=== PATIENT | female | born 1995 | race Caucasian/White ===

== ENCOUNTER 2016-09-18 13:32 | Emergency (ER) | payer OTHER ==
[2016-09-18 13:43] VITALS: BP 99/61
[2016-09-18] MEDS ORDERED: Ketorolac INJ* 60 MG/2 ML VIAL IM ONE (14:04)
[2016-09-18 14:46] LABS: UR Preg Internal Control QC Line Present
--- NOTE | 2016-09-18 14:56 | ED ---
Lower Extremity - HPI Summary HPI Summary: 20F presents with tailbone pain s/p falling down the stairs today. She states that she slipped due to her shoes and feel down a couple stairs on her butt. She did hit her head but she denies any LOC or vomiting. She also hit her right wrist but has full ROM and no deformity. What hurts her the most is her tailbone. She has not taken anything for pain. She denies any loss of bowel or bladder or saddle anaesthesia. She states is hurt the most to sit. She denies any numbness or tingling or pain into the leg. - History of Current Complaint Chief Complaint: EDBackInjuryPain Stated Complaint: FALL/BACK PAIN/SWELLING Time Seen by Provider: 09/18/16 13:56 Pain Intensity: 7 - Allergies/Home Medications Allergies/Adverse Reactions: Allergies Allergy/AdvReac Type Severity Reaction Status Date / Time Shellfish Allergy Allergy Swelling Verified 02/03/16 14:09 Of Face,Lips,& Throat Sulfa Antibiotics Allergy Hives/Diff. Verified 02/03/16 14:09 Breathing/I tching PMH/Surg Hx/FS Hx/Imm Hx Endocrine/Hematology History: Denies: Hx Blood Disorders Respiratory History: Reports: Hx Asthma - as a child Psychiatric History: Reports: Hx Anxiety - treatment in the past, no meds now, Hx Depression Infectious Disease History: Denies: Traveled Outside the [place] in Last 30 Days - Family History Known Family History: Positive: Hypertension, Diabetes - Social History Alcohol Use: None Substance Use Type: Reports: None Smoking Status (MU): Current Every Day Smoker Type: Cigarettes Amount Used/How Often: 10 per day Length of Time of Smoking/Using Tobacco: 5 years Have You Smoked in the Last Year: Yes Review of Systems Negative: Fever Negative: Chest Pain Negative: Shortness Of Breath Positive: Myalgia - tailbone pain All Other Systems Reviewed And Are Negative: Yes Physical Exam Triage Information Reviewed: Yes Vital Signs On Initial Exam: Initial Vitals Temp Pulse Resp BP Pulse Ox 98.1 F 95 16 99/61 98 09/18/16 13:38 09/18/16 13:38 09/18/16 13:38 09/18/16 13:38 09/18/16 13:38 Vital Signs Reviewed: Yes Appearance: Positive: Well-Appearing Skin: Positive: Warm, Dry Head/Face: Positive: Normal Head/Face Inspection, Other - no step off, racoon eyes, aldana sign, Eyes: Positive: Normal, EOMI, YANELIS, Conjunctiva Clear ENT: Positive: Normal ENT inspection, Pharynx normal, TMs normal Respiratory/Lung Sounds: Positive: Clear to Auscultation, Breath Sounds Present Cardiovascular: Positive: Normal, RRR Abdomen Description: Positive: Nontender, Soft Bowel Sounds: Positive: Present Musculoskeletal: Positive: Other - tender over tailbone, good pulses Neurological: Positive: Sensory/Motor Intact, Alert, Oriented to Person Place, Time, CN Intact II-III - Jaquan Coma Scale Best Eye Response: 4 - Spontaneous Best Motor Response: 6 - Obeys Commands Best Verbal Response: 5 - Oriented Diagnostics - Vital Signs Vital Signs Temp Pulse Resp BP Pulse Ox 09/18/16 13:38 98.1 F 95 16 99/61 98 - Laboratory Lab Results: Lab Results 09/18/16 Range/Units 14:33 Urine Test Negative (Negative) Lab Statement: Any lab studies that have been ordered have been reviewed, and results considered in the medical decision making process. - Radiology coccyx Xray Interpretation: No Acute Changes - IMPRESSION: NO ACUTE OSSEOUS INJURY OF THE SACRUM AND COCCYX. PLAIN FILMS ARE RELATIVELY INSENSITIVE TO NONDISPLACED FRACTURES OF THE SACRUM AND COCCYX. IF THERE IS PERSISTENT CLINICAL CONCERN FOR SACROCOCCYGEAL OSSEOUS PATHOLOGY, BONE SCANNING MAY BE MORE SENSITIVE Radiology Interpretation Completed By: Radiologist Lower Extremity Course/Dx - Course Course Of Treatment: 20F presents with tailbone pain s/p falling down the stairs today. She states that she slipped due to her shoes and feel down a couple stairs on her butt. She did hit her head but she denies any LOC or vomiting and normal neuro exam so did not image. She also hit her right wrist but has full ROM and no deformity so did not image. xray tailbone normal. discussed get doughnut pillow. patient understands and agrees with plan - Diagnoses Differential Diagnosis/HQI/PQRI: Positive: Contusion, Fracture (Closed), Sprain , Strain Provider Diagnoses: Coccyx contusion Discharge - Discharge Plan Condition: Good Disposition: HOME Patient Education Materials: Coccyx Injury (ED) Referrals: [facility] [place] [facility] [Outside] Additional Instructions: Take Tylenol or ibuprofen every 6 hours for pain Use doughnut pillow to avoid putting pressure on area Increase fiber intake Follow up with primary in 5 days Return to ED if develop any new or worsening symptoms
--- NOTE | 2016-09-18 15:16 | RAD ---
HISTORY: Fall, tailbone injury COMPARISONS: None VIEWS: 3, frontal, outlet, and lateral views of the sacrum and coccyx FINDINGS: BONE DENSITY: Normal. BONES: There is no displaced fracture. The sacral arches are intact JOINTS: There is no arthropathy. ALIGNMENT: There is no dislocation. SOFT TISSUES: Unremarkable. OTHER FINDINGS: None. IMPRESSION: NO ACUTE OSSEOUS INJURY OF THE SACRUM AND COCCYX. PLAIN FILMS ARE RELATIVELY INSENSITIVE TO NONDISPLACED FRACTURES OF THE SACRUM AND COCCYX. IF THERE IS PERSISTENT CLINICAL CONCERN FOR SACROCOCCYGEAL OSSEOUS PATHOLOGY, BONE SCANNING MAY BE MORE SENSITIVE
== END 2016-09-18 15:29 | disposition home or self-care (01) ==
LOC: ED 13:32
DX: S30.0XXA Contusion of lower back and pelvis, initial encounter (principal); W10.9XXA Fall (on) (from) unspecified stairs and steps, initial encounter; Y93.89 Activity, other specified; Y92.9 Unspecified place or not applicable; F17.210 Nicotine dependence, cigarettes, uncomplicated
CPT/HCPCS: 72220; 81025; 96372; 99281; J1885

== ENCOUNTER → 2017-04-01 15:42 | Emergency (ER) | payer OTHER ==
[~2017-04-01 15:42] MED LIST: NS 0.9% 1000 ML* 1,000 ML IV ONE
[2017-04-01 16:40] LABS: ABS Basophils 0 10^3/ul (0-0.2); ABS Eosinophils 0.3 10^3/ul (0-0.6); ABS Lymphocytes 2.9 10^3/ul (1.0-4.8); ABS Monocytes 0.6 10^3/ul (0-0.8); ABS Neutrophils 6.6 10^3/ul (1.5-7.7); ABS Nucleated RBC 0 10^3/ul; Eosinophil % 3.1 % (0-6); Hematocrit 39 % (35-47); Hemoglobin 13.3 g/dl (12.0-16.0); Lymphocyte % 27.9 % (25-47); Mean Corpuscular HGB Conc 34 g/dl (31-36); Mean Corpuscular Hemoglobin 31 pg (27-31); Mean Corpuscular Volume 91 fL (80-97); Mean Platelet Volume 9 um3 (7.4-10.4); Nucleated Red Blood Cells % 0; Platelet Count 224 10^3/ul (150-450); Red Blood Count 4.28 10^6/ul (4.0-5.4); Red Cell Distribution Width 13 % (10.5-15); White Blood Count 10.4 10^3/ul (3.5-10.8)
[2017-04-01 16:49] LABS: INR 0.98 (0.77-1.02)
[2017-04-01 17:34] LABS: Urine Appearance Clear; Urine Blood Negative (Negative); Urine Color Yellow; Urine Ketones Negative (Negative); Urine Protein Negative (Negative); Urine Urobilinogen Negative (Negative)
--- NOTE | 2017-04-01 17:42 | RAD ---
INDICATION: Early with bleeding COMPARISON: None TECHNIQUE: Transvaginal scans were obtained for the purposes of evaluation. FINDINGS: There is a single intrauterine gestation with identification of the pole and yolk sac. cardiac activity is documented at 150 bpm. The estimated gestational age based on crown-rump length is 9 weeks 0 days based on gestational sac size is 9 weeks 2 days. The adnexal regions appear normal. The right ovary measures 4.2 x 3.5 x 3.7 cm and the left 3.7 x 2.2 x 1.7 cm. IMPRESSION: INTRAUTERINE GESTATION 9 WEEKS 1 DAY. NO SONOGRAPHIC ABNORMALITIES ARE DETECTED.
[2017-04-01 18:53] VITALS: BP 109/64
--- NOTE | 2017-04-01 23:00 | ED ---
Meliton Shirley Stephanie, scribed for Pearl Acosta MD on 04/01/17 at 1849 . Abdominal Pain/Female - HPI Summary HPI Summary: The pt is a 21 y/o F presenting to the ED with c/o vaginal bleeding that began at 16:00 today. The pt reports having to change her pants 3 times today due to the bleeding because she did not have any sanitary pads. Symptoms include abd pain/cramping. The pt has had 1 full-term and 1 elective . The pt is currently . [facility] January 07, 2017. The patient's first PSYCHOLOGICAL STRESS EVALUATOR appointment is on 04/10/17. - History of Current Complaint Chief Complaint: EDOBProblems Stated Complaint: UNKOW PREG BLEEDING AND CRAMPIN Time Seen by Provider: 04/01/17 16:12 Hx Obtained From: Patient Hx Last Menstrual Period: 01/07/17 ?: Yes Onset/Duration: Sudden Onset, Still Present, Other - worse during ambulation Timing: Constant Severity Initially: Moderate Severity Currently: Moderate Pain Intensity: 3 Pain Scale Used: 0-10 Numeric Location: Diffuse Radiates: No Character: Cramping Aggravating Factor(s): Other: - ambulation Alleviating Factor(s): Nothing Associated Signs and Symptoms: Positive: Vaginal Bleeding, Nausea Allergies/Adverse Reactions: Allergies Allergy/AdvReac Type Severity Reaction Status Date / Time Shellfish Allergy Allergy Swelling Verified 02/03/16 14:09 Of Face,Lips,& Throat Sulfa Antibiotics Allergy Hives/Diff. Verified 02/03/16 14:09 Breathing/I tching PMH/Surg Hx/FS Hx/Imm Hx Previously Healthy: Yes Endocrine/Hematology History: Denies: Hx Blood Disorders Respiratory History: Reports: Hx Asthma - as a child Opthamlomology History: Denies: Hx Legally Blind EENT History: Denies: Hx Deafness Psychiatric History: Reports: Hx Anxiety - treatment in the past, no meds now, Hx Depression - Surgical History Surgery Procedure, Year, and Place: cholecystectomy Infectious Disease History: No Infectious Disease History: Denies: Traveled Outside the [place] in Last 30 Days - Family History Known Family History: Positive: Hypertension, Diabetes - Social History Occupation: Unemployed Lives: With Family Alcohol Use: None Substance Use Type: Reports: None Smoking Status (MU): Current Every Day Smoker Type: Cigarettes Amount Used/How Often: 10 per day Length of Time of Smoking/Using Tobacco: 5 years Have You Smoked in the Last Year: Yes Review of Systems Negative: Fever Cardiovascular: Negative Respiratory: Negative Positive: Abdominal Pain - cramping Positive: other - vaginal bleeding Skin: Negative Neurological: Negative Psychological: Normal All Other Systems Reviewed And Are Negative: Yes Physical Exam - Summary Physical Exam Summary: Appearance: Ill-appearing, moderate pain distress, Well-nourished Skin: Warm, color reflects adequate perfusion Head: Normal Head/Face inspection Eyes: Conjunctiva clear ENT: Normal inspection Neck: Supple, no nodes, no JVD. Respiratory: Lungs clear, Normal breath sounds, no respiratory distress Cardio: RRR, No murmur, pulses normal, brisk capillary refill Abdomen: soft, nontender Bowel sounds: present Musculoskeletal: Strength Intact/ ROM intact. No calf tenderness. No edema. Neuro: Alert, muscle tone normal, facial symmetry, speech normal, sensory/motor intact Psychological: Normal Pelvic Exam: External exam nml. 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 No blood in vagina. Minimal white discharge. The cervix is long and closed. Fetus is 8 weeks by palpation. Adnexae no masses, non tender. Triage Information Reviewed: Yes Vital Signs On Initial Exam: Initial Vitals Temp Pulse Resp BP Pulse Ox 98.1 F 62 16 113/65 100 04/01/17 16:05 04/01/17 16:05 04/01/17 16:05 04/01/17 16:05 04/01/17 16:05 Vital Signs Reviewed: Yes - Jaquan Coma Scale Coma Scale Total: 15 Diagnostics - Vital Signs Vital Signs Temp Pulse Resp BP Pulse Ox 04/01/17 16:30 105/51 04/01/17 16:21 64 99 04/01/17 16:19 103/60 04/01/17 16:05 98.1 F 62 16 113/65 100 - Laboratory Lab Results: Lab Results 04/01/17 04/01/17 04/01/17 Range/Units 16:31 16:31 16:31 WBC 10.4 (3.5-10.8) 10^3/ul RBC 4.28 (4.0-5.4) 10^6/ul Hgb 13.3 (12.0-16.0) g/dl Hct 39 (35-47) % MCV 91 (80-97) fL MCH 31 (27-31) pg MCHC 34 (31-36) g/dl RDW 13 (10.5-15) % Plt Count 224 (150-450) 10^3/ul MPV 9 (7.4-10.4) um3 Neut % (Auto) 63.2 (38-83) % Lymph % (Auto) 27.9 (25-47) % Hinds % (Auto) 5.4 (1-9) % Eos % (Auto) 3.1 (0-6) % Baso % (Auto) 0.4 (0-2) % Absolute Neuts (auto) 6.6 (1.5-7.7) 10^3/ul Absolute Lymphs (auto) 2.9 (1.0-4.8) 10^3/ul Absolute Monos (auto) 0.6 (0-0.8) 10^3/ul Absolute Eos (auto) 0.3 (0-0.6) 10^3/ul Absolute Basos (auto) 0 (0-0.2) 10^3/ul Absolute Nucleated RBC 0 10^3/ul Nucleated RBC % 0 INR (Anticoag Therapy) 0.98 (0.77-1.02) APTT 28.1 (26.0-36.3) seconds Sodium 134 (133-145) mmol/L Potassium 3.9 (3.5-5.0) mmol/L Chloride 104 (101-111) mmol/L Carbon Dioxide 25 (22-32) mmol/L Anion Gap 5 (2-11) mmol/L BUN 15 (6-24) mg/dL Creatinine 0.64 (0.51-0.95) mg/dL Est GFR ( Amer) 147.9 (>60) Est GFR (Non-Af Amer) 115.0 (>60) BUN/Creatinine Ratio 23.4 H (8-20) Glucose 88 (70-100) mg/dL Lactic Acid (0.5-2.0) mmol/L Calcium 9.3 (8.6-10.3) mg/dL Total Bilirubin 0.30 (0.2-1.0) mg/dL AST 13 (13-39) U/L ALT 10 (7-52) U/L Alkaline Phosphatase 53 (34-104) U/L Total Protein 6.8 (6.4-8.9) g/dL Albumin 4.1 (3.2-5.2) g/dL Globulin 2.7 (2-4) g/dL Albumin/Globulin Ratio 1.5 (1-3) Beta HCG, Quant 813387.00 mIU/mL Urine Color Urine Appearance Urine pH (5-9) Ur Specific Calhoun (1.010-1.030) Urine Protein (Negative) Urine Ketones (Negative) Urine Blood (Negative) Urine Nitrate (Negative) Urine Bilirubin (Negative) Urine Urobilinogen (Negative) Ur Leukocyte Esterase (Negative) Urine Glucose (Negative) Urine Ascorbic Acid (Negative) Blood Type Antibody Screen 04/01/17 04/01/17 04/01/17 Range/Units 16:31 16:31 17:23 WBC (3.5-10.8) 10^3/ul RBC (4.0-5.4) 10^6/ul Hgb (12.0-16.0) g/dl Hct (35-47) % MCV (80-97) fL MCH (27-31) pg MCHC (31-36) g/dl RDW (10.5-15) % Plt Count (150-450) 10^3/ul MPV (7.4-10.4) um3 Neut % (Auto) (38-83) % Lymph % (Auto) (25-47) % Hinds % (Auto) (1-9) % Eos % (Auto) (0-6) % Baso % (Auto) (0-2) % Absolute Neuts (auto) (1.5-7.7) 10^3/ul Absolute Lymphs (auto) (1.0-4.8) 10^3/ul Absolute Monos (auto) (0-0.8) 10^3/ul Absolute Eos (auto) (0-0.6) 10^3/ul Absolute Basos (auto) (0-0.2) 10^3/ul Absolute Nucleated RBC 10^3/ul Nucleated RBC % INR (Anticoag Therapy) (0.77-1.02) APTT (26.0-36.3) seconds Sodium (133-145) mmol/L Potassium (3.5-5.0) mmol/L Chloride (101-111) mmol/L Carbon Dioxide (22-32) mmol/L Anion Gap (2-11) mmol/L BUN (6-24) mg/dL Creatinine (0.51-0.95) mg/dL Est GFR ( Amer) (>60) Est GFR (Non-Af Amer) (>60) BUN/Creatinine Ratio (8-20) Glucose (70-100) mg/dL Lactic Acid 0.4 L (0.5-2.0) mmol/L Calcium (8.6-10.3) mg/dL Total Bilirubin (0.2-1.0) mg/dL AST (13-39) U/L ALT (7-52) U/L Alkaline Phosphatase (34-104) U/L Total Protein (6.4-8.9) g/dL Albumin (3.2-5.2) g/dL Globulin (2-4) g/dL Albumin/Globulin Ratio (1-3) Beta HCG, Quant mIU/mL Urine Color Yellow Urine Appearance Clear Urine pH 5.0 (5-9) Ur Specific Calhoun 1.030 (1.010-1.030) Urine Protein Negative (Negative) Urine Ketones Negative (Negative) Urine Blood Negative (Negative) Urine Nitrate Negative (Negative) Urine Bilirubin Negative (Negative) Urine Urobilinogen Negative (Negative) Ur Leukocyte Esterase Negative (Negative) Urine Glucose Negative (Negative) Urine Ascorbic Acid * H (Negative) Blood Type O Positive Antibody Screen Negative Result Diagrams: 04/01/17 16:31 04/01/17 16:31 Lab Statement: Any lab studies that have been ordered have been reviewed, and results considered in the medical decision making process. - Additional Comments Diagnostic Additional Comments: Transvaginal US shows: INTRAUTERINE GESTATION 9 WEEKS 1 DAY. NO SONOGRAPHIC ABNORMALITIES ARE DETECTED. Re-Evaluation - Re-Evaluation First Eval Re-Evaluation Time: 18:30 - discussed lab results and disposition Change: Unchanged Abdominal Pain Fem Course/Dx - Course Course Of Treatment: Pt had labs showing RH positive status. Elevated beta HCG and US with 9 week 1 day viable single IUP with FHR 150 BPM. Pelvic exam completed and cultures sent. No significant bleeding noted on pelvic exam. Pt is discharged to follow up with OB as scheduled. - Diagnoses Differential Diagnosis: Positive: Ectopic , Pelvic Inflammatory Disease , , Other - threatened Provider Diagnoses: Bleeding in early Discharge - Discharge Plan Condition: Stable Disposition: HOME Prescriptions: Metronidazole [Flagyl 500 MG TAB] 500 mg PO BID #14 tab Patient Education Materials: Abdominal Pain in (ED) Referrals: Timothy Lindo MD [Medical Doctor] - 04/13/17 Additional Instructions: Keep your appointment with OB on 04/13/17. Your ultrasound did not show any abnormalities. There are pelvic cultures pending. We will contact you if you need further treatment based on those results. Return to the ER if you have any new or worsening symptoms. The documentation as recorded by the Meliton abel Stephanie accurately reflects the service I personally performed and the decisions made by , Pearl Acosta MD.
--- NOTE | 2017-04-03 08:54 | PN ---
Progress Note - Progress Note Date of Service: 04/01/17 Note: Patient vaginal DNA grew positive gardnerella Based on the HPI note from Dr. Belinda Acosta, patient is experiencing abdominal cramping so is symptomatic According to UTD, symptomatic women should be treated appropriately with Flagyl 500mg BID x 7 days Prescription sent to pharmacy.
== END | disposition home or self-care (01) ==
LOC: ED 15:42
DX: O20.9 Hemorrhage in early pregnancy, unspecified (principal); Z3A.09 9 weeks gestation of pregnancy; R11.0 Nausea; F41.9 Anxiety disorder, unspecified; F32.9 Major depressive disorder, single episode, unspecified; Z90.49 Acquired absence of other specified parts of digestive tract; Z88.2 Allergy status to sulfonamides; F17.210 Nicotine dependence, cigarettes, uncomplicated
CPT/HCPCS: 36415; 76817; 80053; 81003; 83605; 84702; 85025; 85610; 85730; 86850; 86900; 86901; 87480; 87491; 87510; 87591; 87661; 96360; 99283

== ENCOUNTER → 2017-06-01 09:50 | Emergency (ER) | payer OTHER ==
[~2017-06-01 09:50] MED LIST changes: +Acetaminophen TAB* 325 MG PO ONE; +Amoxicillin PO (*) 875 MG TAB PO ONE; +HYDROcodone/ACETAMIN 5-325 MG* 1 TAB PO ONE; -NS 0.9% 1000 ML* 1,000 ML IV ONE
[2017-06-01] MEDS: NS 0.9% 1000 ML* 2,000 ML IV ONE ×2 (11:00→12:01)
[2017-06-01 11:32] LABS: ABS Basophils 0 10^3/ul (0-0.2); ABS Eosinophils 0.5 10^3/ul (0-0.6); ABS Lymphocytes 2.6 10^3/ul (1.0-4.8); ABS Monocytes 0.6 10^3/ul (0-0.8); ABS Neutrophils 5.4 10^3/ul (1.5-7.7); ABS Nucleated RBC 0 10^3/ul; Eosinophil % 5.7 % (0-6); Hematocrit 33 % (35-47); Hemoglobin 11.6 g/dl (12.0-16.0); Lymphocyte % 28.6 % (25-47); Mean Corpuscular HGB Conc 35 g/dl (31-36); Mean Corpuscular Hemoglobin 32 pg (27-31); Mean Corpuscular Volume 91 fL (80-97); Mean Platelet Volume 9 um3 (7.4-10.4); Nucleated Red Blood Cells % 0; Platelet Count 173 10^3/ul (150-450); Red Blood Count 3.68 10^6/ul (4.0-5.4); Red Cell Distribution Width 13 % (10.5-15); White Blood Count 9.2 10^3/ul (3.5-10.8)
[2017-06-01 11:50] LABS: EGFR Non-African American 160.3 (>60)
[2017-06-01 12:02] LABS: INR 0.9 (0.77-1.02)
--- NOTE | 2017-06-01 15:36 | RAD ---
Indication: Worst headache of life localizing to the RIGHT temporal region. Associated like sensitivity. Headaches for 2 weeks. 18 weeks . Comparison: No relevant prior exams available on the [facility] [place]. Technique: [employer] [place] 1.5 Joana [id number] with GEM suite. MRI brain without contrast. Report: Diffusion series is negative for acute or subacute ischemia. Susceptibility series is negative for stigmata of hemosiderin deposition to indicate previous hemorrhage. Unremarkable cerebral sulci, ventricles, and basal cisterns. No conspicuous abnormality at the pituitary gland within limits of routine noncontrast MRI. Midline pituitary stalk. Unremarkable internal auditory canals. Preserved major intracranial flow-voids. Normal variant minimally prominent perivascular spaces at the basal ganglia. No intra or extra-axial lesions, hemorrhage, or fluid collections evident. Negative for mass effect. There is mucosal thickening throughout the paranasal sinuses with evidence for gas bubbles at the LEFT maxillary sinus and fluid level at the RIGHT frontal sinus. Near complete opacification of the ethmoid sinuses. Small fluid level at the LEFT sphenoid sinus. Clear mastoid air spaces. IMPRESSION: 1. Normal unenhanced MRI of the brain. 2. Paranasal sinus pansinusitis with more specific stigmata of acute sinusitis including at the LEFT maxillary, LEFT sphenoid, and RIGHT frontal sinuses.
[2017-06-01 17:52] VITALS: BP 103/62
--- NOTE | 2017-06-01 18:03 | CONS ---
NEUROLOGY CONSULTATION: DATE OF CONSULT: 06/01/17 LOCATION: She is in the emergency room. REFERRING PHYSICIAN: Dr. Tinoco. CHIEF COMPLAINT: Headache. HISTORY OF PRESENT ILLNESS: Agueda Holcomb is a 21-year-old woman who developed a headache about 4 weeks ago. It would come and go at first, but would only go away for at most a few hours. It became more intense over time, but was pretty intense from the beginning as well. She developed photophobia, nausea, and vomiting and so presented to the emergency room finally today. She denies having a problem with headaches in the past other than when she was a child about 6 years of age when she would have "tension" headaches. She had dull headaches without nausea or photophobia and they would come and go. Other than that, she has not had headaches over time. She has not had any recent head trauma and no fevers, chills, numbness, or weakness of the limbs. She has not noticed any joint pain or rashes. No sore throat or cough. MEDICATIONS: Only medication is vitamins and Celexa. ALLERGIES: She is listed as having SHELLFISH allergies and allergies to SULFA drugs. FAMILY HISTORY: Negative for headache disorders. Her mother had preeclampsia, but is healthy at this point as is her father. REVIEW OF SYSTEMS: Negative for breathing problems, chest pain, intestinal problems other than the recent nausea and vomiting, rashes, joint pain, fevers, psychiatric disorders other than depression, hypertension, diabetes, thyroid disease, difficulty walking, or difficulty with vision other than photophobia. She is in her first trimester of . PHYSICAL EXAM: General: She is well nourished and well hydrated. Vital Signs : Temperature 98.4 by temporal skin, blood pressure running 90 to 108 systolic over 45 to 62 diastolic, heart rate in the 60s and regular, and respirations 16. Skin: Warm and dry. Neck: Supple, but she has posterior neck pain with full flexion. Straight leg raising produces back pain in the left leg only. There is no radiation down the leg. Heart: Regular rate and rhythm without murmurs. Lungs: Clear. Carotid pulses are symmetrical and there are no cervical bruits. Oral mucosa is moist and atraumatic. There is no pharyngeal erythema. Neurologic: Pupils react equally from 3 to 2 mm. She is photophobic. Eye movements are normal and nonpainful. Visual sagastume are full to confrontation and there is no ptosis. Facial musculature is symmetric. Facial sensation to light touch is symmetric. Palate and tongue appear normal and palate rises symmetrically. There is no dysarthria. Hearing is intact. Funduscopic exam is difficult due to her photophobia. With the blue light, I could see her left optic disk and it looked pretty sharp, but I did not get a great look at it and I could not see the right one due to her photophobia and subsequent squinting. Motor exam reveals normal muscle tone and strength in all limbs. There is no drift of any limbs. Sensory exam to light touch is intact in all limbs. Reflexes are hypoactive, but present diffusely. Plantar responses are flexor bilaterally. There is no tremor in the limbs. She is alert, oriented and a good historian. Memory is intact and language is fluent. DIAGNOSTIC STUDIES/LAB DATA: Includes a normal CBC other than hemoglobin of 11.6. INR is normal at 0.9 and PTT at 26.9. Chemistry profile is normal other than the mildly elevated CRP at 7.96. 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 IMPRESSION: New onset headache in a 21-year-old woman. The persistence is worrisome for intracranial hemorrhage, infection, or less likely mass lesion. A cerebral vein thrombosis is a consideration, but it is unusual to occur in the first trimester. Because of her , contrast is not absolutely contraindicated. I would like to get an MRI of the brain to start and if that is negative, recommend a lumbar puncture in spite of her lack of fever or elevated white blood cell count. I have discussed my impression with Dr. Tinoco. [id number]/[facility] #: [id number] Addendum: Her MRI brain was normal other than extensive acute and chronic sinusitis. I discussed the results with Dr. Myers and he was going to treat her for sinusitis. LOPEZ
--- NOTE | 2017-06-01 23:20 | ED ---
Morteza Shirley Gabriel, scribed for Edouard Tinoco MD on 06/01/17 at 1043 . Headache - HPI Summary HPI Summary: This patient is a 21 year old F presenting to [facility] with a chief complaint of a right frontal CURTIS that began two weeks ago. She states it is the worst headache of her life and had a sudden onset. The patient rates the waxing and waning pain 8/10 in severity currently. Symptoms alleviated by nothing, she has tried OTC pain meds with not relief. Patient reports visual disturbance described as floaters, nausea, neck pain, and photophobia. Patient denies fever, chills, ABD pain, back pain, tooth pain, sinus pressure, dysuria, diarrhea, and ear pain. Pt is 18 weeks . - History Of Current Complaint Chief Complaint: EDHeadache Stated Complaint: HEADACHE/18 WKS Time Seen by Provider: 06/01/17 10:28 Hx Obtained From: Patient Hx Last Menstrual Period: 01/07/17 Onset/Duration: Started weeks ago - 2, Still Present Initially Headache Was: "Worst Headache Ever" Currently Pain Is: Current Pain Scale(0-10)= - 8 Timing: Constant - waxing and waning Location of Headache: Frontal Aggravating Factor: Bright Lights Associated Signs And Symptoms: Negative - fever, chills, ABD pain, back pain, tooth pain, sinus pressure, dysuria, diarrhea, and ear pain., Other (Noted In Comments) - visual disturbance described as floaters, nausea, neck pain, and photophobia. - Allergies/Home Medications Allergies/Adverse Reactions: Allergies Allergy/AdvReac Type Severity Reaction Status Date / Time MS Shellfish Allergy Allergy Swelling Verified 06/01/17 09:57 [Shellfish Allergy] Of Face,Lips,& Throat MS Sulfa Antibiotics Allergy Hives/Diff. Verified 06/01/17 09:57 [Sulfa Antibiotics] Breathing/I tching PMH/Surg Hx/FS Hx/Imm Hx Endocrine/Hematology History: Denies: Hx Blood Disorders Respiratory History: Reports: Hx Asthma - as a child Denies: Hx Chronic Obstructive Pulmonary Disease (COPD) Sensory History: Denies: Hx Legally Blind, Hx Deafness Opthamlomology History: Denies: Hx Legally Blind Psychiatric History: Reports: Hx Anxiety - treatment in the past, no meds now, Hx Depression - Surgical History Surgery Procedure, Year, and Place: cholecystectomy Infectious Disease History: No Infectious Disease History: Denies: Traveled Outside the [place] in Last 30 Days - Family History Known Family History: Positive: Hypertension, Diabetes - Social History Occupation: Unemployed Lives: With Family Alcohol Use: None Substance Use Type: Reports: None Smoking Status (MU): Current Every Day Smoker Type: Cigarettes Amount Used/How Often: 10 per day Length of Time of Smoking/Using Tobacco: 5 years Have You Smoked in the Last Year: Yes Review of Systems Negative: Fever, Chills Positive: Photophobia, Other - visual disturbance described as floaters ENT: Negative - sinus pressure Negative: Dental Pain, Ear Ache Positive: Nausea. Negative: Abdominal Pain, Diarrhea Negative: dysuria Musculoskeletal: Negative - back pain Positive: Other - neck pain All Other Systems Reviewed And Are Negative: Yes Physical Exam - Summary Physical Exam Summary: General: well-appearing, mild pain distress Skin: warm, color reflects adequate perfusion, dry Head: TTP in the right samaritan Eyes: EOMI, YANELIS, positive photophobia ENT: normal Neck: supple, nontender Respiratory: CTA, breath sounds present Cardiovascular: RRR Abdomen: soft, nontender, gravid abdomen Bowel: present Musculoskeletal: normal, strength/ROM intact Neurological: normal, sensory/motor intact, A&O x3 Psychological: affect/mood appropriate Triage Information Reviewed: Yes Vital Signs On Initial Exam: Initial Vitals Temp Pulse Resp BP Pulse Ox 98.4 F 80 18 136/76 97 06/01/17 09:53 06/01/17 09:53 06/01/17 09:53 06/01/17 09:53 06/01/17 09:53 Vital Signs Reviewed: Yes Diagnostics - Vital Signs Vital Signs Temp Pulse Resp BP Pulse Ox 06/01/17 09:53 98.4 F 80 18 136/76 97 - Laboratory Lab Results: Lab Results 06/01/17 06/01/17 06/01/17 Range/Units 11:11 11:11 11:11 WBC 9.2 (3.5-10.8) 10^3/ul RBC 3.68 L (4.0-5.4) 10^6/ul Hgb 11.6 L (12.0-16.0) g/dl Hct 33 L (35-47) % MCV 91 (80-97) fL MCH 32 H (27-31) pg MCHC 35 (31-36) g/dl RDW 13 (10.5-15) % Plt Count 173 (150-450) 10^3/ul MPV 9 (7.4-10.4) um3 Neut % (Auto) 59.2 (38-83) % Lymph % (Auto) 28.6 (25-47) % Leake % (Auto) 6.2 (0-7) % Eos % (Auto) 5.7 (0-6) % Baso % (Auto) 0.3 (0-2) % Absolute Neuts (auto) 5.4 (1.5-7.7) 10^3/ul Absolute Lymphs (auto) 2.6 (1.0-4.8) 10^3/ul Absolute Monos (auto) 0.6 (0-0.8) 10^3/ul Absolute Eos (auto) 0.5 (0-0.6) 10^3/ul Absolute Basos (auto) 0 (0-0.2) 10^3/ul Absolute Nucleated RBC 0 10^3/ul Nucleated RBC % 0 ESR 27 H (0-14) mm/Hr INR (Anticoag Therapy) 0.90 (0.77-1.02) APTT 26.9 (26.0-36.3) seconds Sodium 135 (133-145) mmol/L Potassium 3.9 (3.5-5.0) mmol/L Chloride 105 (101-111) mmol/L Carbon Dioxide 24 (22-32) mmol/L Anion Gap 6 (2-11) mmol/L BUN 9 (6-24) mg/dL Creatinine 0.48 L (0.51-0.95) mg/dL Est GFR ( Amer) 206.1 (>60) Est GFR (Non-Af Amer) 160.3 (>60) BUN/Creatinine Ratio 18.8 (8-20) Glucose 94 (70-100) mg/dL Lactic Acid (0.5-2.0) mmol/L Calcium 8.6 (8.6-10.3) mg/dL Total Bilirubin 0.20 (0.2-1.0) mg/dL AST 14 (13-39) U/L ALT 11 (7-52) U/L Alkaline Phosphatase 56 (34-104) U/L C-Reactive Protein 7.96 H (< 5.00) mg/L Total Protein 6.1 L (6.4-8.9) g/dL Albumin 3.3 (3.2-5.2) g/dL Globulin 2.8 (2-4) g/dL Albumin/Globulin Ratio 1.2 (1-3) /14/18 Range/Units 11:11 WBC (3.5-10.8) 10^3/ul RBC (4.0-5.4) 10^6/ul Hgb (12.0-16.0) g/dl Hct (35-47) % MCV (80-97) fL MCH (27-31) pg MCHC (31-36) g/dl RDW (10.5-15) % Plt Count (150-450) 10^3/ul MPV (7.4-10.4) um3 Neut % (Auto) (38-83) % Lymph % (Auto) (25-47) % Leake % (Auto) (0-7) % Eos % (Auto) (0-6) % Baso % (Auto) (0-2) % Absolute Neuts (auto) (1.5-7.7) 10^3/ul Absolute Lymphs (auto) (1.0-4.8) 10^3/ul Absolute Monos (auto) (0-0.8) 10^3/ul Absolute Eos (auto) (0-0.6) 10^3/ul Absolute Basos (auto) (0-0.2) 10^3/ul Absolute Nucleated RBC 10^3/ul Nucleated RBC % ESR (0-14) mm/Hr INR (Anticoag Therapy) (0.77-1.02) APTT (26.0-36.3) seconds Sodium (133-145) mmol/L Potassium (3.5-5.0) mmol/L Chloride (101-111) mmol/L Carbon Dioxide (22-32) mmol/L Anion Gap (2-11) mmol/L BUN (6-24) mg/dL Creatinine (0.51-0.95) mg/dL Est GFR ( Amer) (>60) Est GFR (Non-Af Amer) (>60) BUN/Creatinine Ratio (8-20) Glucose (70-100) mg/dL Lactic Acid 1.1 (0.5-2.0) mmol/L Calcium (8.6-10.3) mg/dL Total Bilirubin (0.2-1.0) mg/dL AST (13-39) U/L ALT (7-52) U/L Alkaline Phosphatase (34-104) U/L C-Reactive Protein (< 5.00) mg/L Total Protein (6.4-8.9) g/dL Albumin (3.2-5.2) g/dL Globulin (2-4) g/dL Albumin/Globulin Ratio (1-3) Result Diagrams: 06/01/17 11:11 06/01/17 11:11 Lab Statement: Any lab studies that have been ordered have been reviewed, and results considered in the medical decision making process. - Additional Comments Diagnostic Additional Comments: Brain MRI reveals, per radiologist, 1. Normal unenhanced MRI of the brain. 2. Paranasal sinus pansinusitis with more specific stigmata of acute sinusitis including at the LEFT maxillary, LEFT sphenoid, and RIGHT frontal sinuses. ED physician has reviewed this radiology report. Re-Evaluation - Re-Evaluation 1 Re-Evaluation Time: 17:19 Comment: Discuss test results, plan to d/c Headache Course/Dx - Course Course Of Treatment: DR MARINELLI, NEUROLOGY, SAW PATIENT IN ED. MRI REVIEWED. NO LP AT THIS TIME GIVEN SINUSITIS SEEN ON MRI. F/O PMD/OBGYN; RETURN IF WORSE. - Diagnoses Provider Diagnoses: Headache, Sinusitis - Physician Notifications Discussed Care Of Patient With: Dick Marinelli Time Discussed With Above Provider: 10:05 Instructed by Provider To: Other - We discussed patient care with Dr Marinelli and they recommended to get and MRI over a CT. Discharge - Discharge Plan Condition: Stable Disposition: HOME Prescriptions: Amoxicillin PO (*) [Amoxicillin 875 MG (*)] 875 mg PO BID #20 tab HYDROcodone/ACETAMIN 5-325 MG* [[place] 5-325 TAB*] 1 tab PO Q4H PRN #20 tab MDD 6 PRN Reason: Pain Patient Education Materials: Sinusitis (ED), Acute Headache (ED) Referrals: [facility] [Provider Group] Dick Marinelli MD [Medical Doctor] - Additional Instructions: FOLLOW UP WITH YOUR OBGYN. YOU WERE SEEN BY THE NEUROLOGIST, BURROWS, TODAY IN THE EMERGENCY DEPARTMENT. RETURN TO THE EMERGENCY DEPARTMENT FOR ANY WORSENING OF YOUR CONDITION; PAIN, WEAKNESS, NUMBNESS, CHANGES IN VISION OR SPEECH, FEVER OR QUESTIONS OR CONCERNS. The documentation as recorded by the Morteza abel Gabriel accurately reflects the service I personally performed and the decisions made by me, Edouard Tinoco MD.
== END | disposition home or self-care (01) ==
LOC: ED 09:50
DX: J32.9 Chronic sinusitis, unspecified (principal); R51 Headache; H53.149 Visual discomfort, unspecified; F17.210 Nicotine dependence, cigarettes, uncomplicated
CPT/HCPCS: 36415; 70551; 80053; 83605; 85025; 85610; 85652; 85730; 86140; 99283; A9270-GY

== ENCOUNTER 2017-07-05 10:52 | Emergency (ER) | payer OTHER ==
[2017-07-05] MEDS ORDERED: Bupivacaine 0.5% SDV PF* 10-30ML VIAL INJ ONE (11:39)
[2017-07-05 11:55] VITALS: BP 117/53
--- NOTE | 2017-07-05 19:26 | ED ---
Mica Shirley Julia, scribed for Nakul Oshea MD on 07/05/17 at 1144 . Complex/Multi-Sys Presentation - HPI Summary HPI Summary: This patient is a 21 year old F presenting to [facility] with a chief complaint of diffuse left sided dental pain for the past four or five days. The patient rates the pain 10/10 in severity. Symptoms unchanged by Tylenol or Ibuprofen. Pt states she is unable to eat due to pain. Pt has appointment with a dentist in a couple weeks. Patient is 22 weeks . Patient has a hx of dental caries and extractions. - History Of Current Complaint Chief Complaint: EDDentalPain Time Seen by Provider: 07/05/17 11:33 Hx Obtained From: Patient Onset/Duration: Lasting Days, Still Present Timing: Constant Location: Pain At: - left sided diffuse dental pain Aggravating Factor(s): eating Related History: Similar Episode/Diagnosed As: - dental caries, tooth extractions - Allergies/Home Medications Allergies/Adverse Reactions: Allergies Allergy/AdvReac Type Severity Reaction Status Date / Time MS Shellfish Allergy Allergy Swelling Verified 06/01/17 09:57 [Shellfish Allergy] Of Face,Lips,& Throat MS Sulfa Antibiotics Allergy Hives/Diff. Verified 06/01/17 09:57 [Sulfa Antibiotics] Breathing/I tching PMH/Surg Hx/FS Hx/Imm Hx Endocrine/Hematology History: Denies: Hx Blood Disorders Cardiovascular History: Denies: Hx Pacemaker/ICD Respiratory History: Reports: Hx Asthma - as a child Denies: Hx Chronic Obstructive Pulmonary Disease (COPD) Sensory History: Denies: Hx Legally Blind, Hx Deafness, Hx Hearing Aid Opthamlomology History: Denies: Hx Legally Blind Psychiatric History: Reports: Hx Anxiety - treatment in the past, no meds now, Hx Depression Denies: Hx Panic Disorder - Surgical History Surgery Procedure, Year, and Place: cholecystectomy Infectious Disease History: No Infectious Disease History: Denies: Traveled Outside the [place] in Last 30 Days - Family History Known Family History: Positive: Hypertension, Diabetes - Social History Alcohol Use: None Substance Use Type: Reports: None Smoking Status (MU): Current Every Day Smoker Type: Cigarettes Amount Used/How Often: 10 per day Length of Time of Smoking/Using Tobacco: 5 years Have You Smoked in the Last Year: Yes Review of Systems Negative: Fever Positive: Dental Pain All Other Systems Reviewed And Are Negative: Yes Physical Exam - Summary Physical Exam Summary: Appearance: Well appearing, no pain distress Skin: warm, dry, reflects adequate perfusion Head/face: normal Eyes: EOMI, YANELIS ENT: all molars extracted, widespread pain on left, dental decay with no focal tenderness Neck: supple, non-tender Respiratory: CTA, breath sounds present Cardiovascular: RRR, pulses symmetrical Abdomen: non-tender, soft Bowel Sounds: present Musculoskeletal: normal, strength/ROM intact Neuro: normal, sensory motor intact, A&Ox3 Triage Information Reviewed: Yes Vital Signs On Initial Exam: Initial Vitals Temp Pulse Resp BP Pulse Ox 97.6 F 81 16 133/58 96 07/05/17 10:59 07/05/17 10:59 07/05/17 10:59 07/05/17 10:59 07/05/17 10:59 Vital Signs Reviewed: Yes Procedures - Procedure Summary Procedure Summary: Dental blocks: for pain An inferior alveolar nerve block on the Left and an infraorbital nerve block on the left was performed with 1cc each of bupivicaine 0.5% via intraoral approach. Pain was relieved totally. Aura well. No comps. Diagnostics - Vital Signs Vital Signs Temp Pulse Resp BP Pulse Ox 07/05/17 10:59 97.6 F 81 16 133/58 96 - Laboratory Lab Statement: Any lab studies that have been ordered have been reviewed, and results considered in the medical decision making process. Re-Evaluation - Re-Evaluation 1 Re-Evaluation Time: 11:53 Change: Improved - Dental block was performed. Pain is gone. Complex Multi-Symp Course/Dx Course Of Treatment: . Blocks done for pain with relief. Start abx and oral chlorohex rinse. Refer to dental. - Diagnoses Provider Diagnoses: Dental caries, Pain, dental, Second trimester Discharge - Sign-Out/Discharge Documenting (check all that apply): Discharge - Discharge Plan Condition: Good Disposition: HOME Prescriptions: Chlorhexidine MOUTHWASH 0.12%* [Peridex Mouth Wash 0.12%*] 15 ml MT BID #1 btl Penicillin VK 500 MG TAB(NF) [Penicillin VK 500 mg Tab] 500 mg PO QID #40 tab Patient Education Materials: Toothache (ED) Referrals: No Primary Care Phys,NOPCP [Primary Care Provider] - Additional Instructions: Tylenol for discomfort. Call your dentist today to see if you can get in sooner. DO NOT take ibuprofen due to . Return if worse or other concerns. - Billing Disposition and Condition Condition: GOOD Disposition: HOME The documentation as recorded by the Mica abel Julia accurately reflects the service I personally performed and the decisions made by me, Nakul Oshea MD.
== END 2017-07-05 11:54 | disposition home or self-care (01) ==
LOC: ED 10:52
DX: K08.89 Other specified disorders of teeth and supporting structures (principal); F17.210 Nicotine dependence, cigarettes, uncomplicated; K02.9 Dental caries, unspecified; Z3A.17 17 weeks gestation of pregnancy
CPT/HCPCS: 96374; 99281

== ENCOUNTER → 2017-08-16 14:36 | Emergency (ER) | payer OTHER ==
[2017-08-16 15:17] VITALS: BP 109/64
--- NOTE | 2017-08-16 18:10 | ED ---
Throat Pain/Nasal Congestion - HPI Summary HPI Summary: Patient is a 31-year-old female who presents emergency department for ongoing dental pain. Patient states she recently finished a prescription of penicillin for a dental infection. States her pain mildly improved but has returned and is worse. She states she's had some facial swelling. She denies fever. Patient also notes she is . Otherwise denies any complaints. Symptoms are mild in severity. Chewing and touching affected area makes symptoms worse. Nothing makes symptoms better. - History of Current Complaint Chief Complaint: EDDentalPain Time Seen by Provider: 08/16/17 14:46 Hx Obtained From: Patient - Allergies/Home Medications Allergies/Adverse Reactions: Allergies Allergy/AdvReac Type Severity Reaction Status Date / Time shellfish derived Allergy Anaphylatic Verified 08/16/17 14:42 Shock Home Medications: Home Medications Vitamin TAB* 1 tab PO DAILY 08/16/17 [History Confirmed 08/16/17] PMH/Surg Hx/FS Hx/Imm Hx Previously Healthy: Yes Endocrine/Hematology History: Denies: Hx Blood Disorders Cardiovascular History: Denies: Hx Pacemaker/ICD Respiratory History: Reports: Hx Asthma - as a child Denies: Hx Chronic Obstructive Pulmonary Disease (COPD) Sensory History: Denies: Hx Legally Blind, Hx Deafness, Hx Hearing Aid Opthamlomology History: Denies: Hx Legally Blind Psychiatric History: Reports: Hx Anxiety - on lexapro, Hx Depression Denies: Hx Panic Disorder - Surgical History Surgery Procedure, Year, and Place: cholecystectomy Infectious Disease History: No Infectious Disease History: Denies: Traveled Outside the [place] in Last 30 Days - Family History Known Family History: Positive: Hypertension, Diabetes - Social History Alcohol Use: None Substance Use Type: Reports: None Smoking Status (MU): Current Every Day Smoker Type: Cigarettes Amount Used/How Often: 1/2ppd Length of Time of Smoking/Using Tobacco: 5 years Have You Smoked in the Last Year: Yes Review of Systems Constitutional: Negative Negative: Fever, Chills Positive: Dental Pain Negative: Vomiting, Nausea All Other Systems Reviewed And Are Negative: Yes Physical Exam Triage Information Reviewed: Yes Vital Signs On Initial Exam: Initial Vitals Temp Pulse Resp BP Pulse Ox 98 F 80 16 106/77 99 08/16/17 14:38 08/16/17 14:38 08/16/17 14:38 08/16/17 14:38 08/16/17 14:38 Vital Signs Reviewed: Yes Appearance: Positive: Well-Appearing - Patient sitting on bed in no acute distress. Skin: Positive: Warm, Dry Head/Face: Positive: Normal Head/Face Inspection Eyes: Positive: Normal ENT: Positive: Other - Poor dentition noted throughout. Erythema, edema and pain noted surrounding gums on the left upper teeth. No drainable abscess noted. No trismus. No submandibular edema. No necrosis. Neck: Positive: Supple, No Lymphadenopathy Neurological: Positive: Normal, CN Intact II-III Psychiatric: Positive: Affect/Mood Appropriate Diagnostics - Vital Signs Vital Signs Temp Pulse Resp BP Pulse Ox 08/16/17 15:31 97.4 F 110 20 109/64 98 08/16/17 15:17 97.4 F 110 20 109/64 98 08/16/17 14:38 98 F 80 16 106/77 99 - Laboratory Lab Statement: Any lab studies that have been ordered have been reviewed, and results considered in the medical decision making process. EENT Course/Dx - Course Course Of Treatment: Patient presenting with ongoing dental pain after finishing a prescription of penicillin. No obvious drainable abscess on exam. Chest afebrile well-appearing. Will put her on a course of clindamycin. Advised to continue Tylenol for pain as directed. To apply warm compresses to face. To call her dentist for close follow-up appointment. To return to the ear symptoms change or worsen. - Differential Diagnoses Differential Diagnoses: Dental Abscess, Dental Caries, Periodontic Abscess, Periodontic Disease, Peritonsillar Ulcer, Pharyngitis - Diagnoses Provider Diagnoses: Dental abscess Discharge - Sign-Out/Discharge Documenting (check all that apply): Discharge/Admit/Transfer - Discharge Plan Condition: Good Disposition: HOME Prescriptions: Clindamycin Cap(NF) [Clindamycin Cap 300 mg Cap(NF)] 300 mg PO Q6H #40 cap Patient Education Materials: Dental Abscess (ED) Referrals: No Primary Care Phys,NOPCP [Primary Care Provider] - Additional Instructions: Call your dentist and OB for follow up appointments Take antibiotic as directed Tylenol for pain as directed Apply warm compresses Return to ER for facial swelling, fever, vomiting - Billing Disposition and Condition Condition: GOOD Disposition: HOME
== END | disposition home or self-care (01) ==
LOC: ED 14:36
DX: K04.7 Periapical abscess without sinus (principal); F17.210 Nicotine dependence, cigarettes, uncomplicated
CPT/HCPCS: 99281

== ENCOUNTER 2017-10-25 16:14 | Inpatient (IN) | payer OTHER ==
[2017-10-25] MEDS ORDERED: Oxytocin in LR* 20 UNITS/1,000 ML BAG IVPB SCH (17:00)
[2017-10-25] MEDS ORDERED: Oxytocin in LR* 20 UNITS/1,000 ML BAG IVPB ONE (17:14)
--- NOTE | 2017-10-25 17:29 | HP ---
General Information - General Information Maternal Age: 22 Grav: 3 Para: 1 SAB: 0 IEA: 1 Estimated Due Date: 11/02/17 Determined By: Early Ultrasound Maternal Blood Type and Rh: O Positive - Results this Serology/RPR Result: Non-Reactive Rubella Result: Immune HBsAg Result: Negative HIV Result: Negative GBS Culture Result: Negative Past Medical History Delivery History: Hx Uncomplicated Vaginal Delivery Delivery History Comment: SVB, midline epis 2016 Pertinent Past Medical History: See Records Past Medical History Comment: HSV 2 asthma back pain depression/anxiety migraine Pertinent Past Surgical History: See Records Past Surgical History Comment: Umbilical hernia repair 2014 leif 2015 Pertinent Family History: Non-Contributory Family History Comment: COPD emphysema diabetes - Antepartal Records Antepartal Records: Reviewed, Complicated by: - Hx HSV, prophylaxis given Review of Systems Constitutional: Comfortable CV Complaint: No Respiratory: Shortness of Breath: No Gastrointestinal: No Nausea/Vomiting, Normal Bowel Movement Genitourinary: Leaking Fluid, No Dysuria, No Bleeding Musculoskeletal: No Complaint Neurological: No Headache, No Visual Changes Movement: Normal Exam Allergies/Adverse Reactions: Allergies Sulfa (Sulfonamide Antibiotics) Allergy (Severe, Verified 10/13/17 21:49) Anaphylatic Shock patient stops breathing shellfish derived Allergy (Verified 08/16/17 14:42) Anaphylatic Shock - Measurements Height: 5 ft 5 in Weight: 219 lb Weight in lbs: [phone] Body Mass Index (BMI): 36.4 Pre- Weight: 244 lb Weight Gained This : -18 lbs and 0 ozs - Exam Breast: Breast Exam Deferred CVA: No CVA Tenderness Extremities: No Edema Heart: Normal Rhythm/Heart Sounds HEENT: No Significant Findings Lungs: Clear Bilaterally Rectal: Rectal Exam Deferred Reflexes: DTR 2+, - - no clonus Thyroid: - - WNL limits @ entry to AP care - Abdominal Exam Abdomen Exam: Non-Tender - Ultrasound/Biophysical Profile Ultrasound Status: Not Done Targeted Exam Findings See L&D Outpatient Visit Provider Note for Findings: Yes Estimated Weight: 8-8.5lb Cervical Exam: 3cm Effacement: 80% Station: -1 Presenting Part: Vertex Membrane Status: SROM Amniotic Fluid Evaluation: Gross Rupture - Patient evaluated for SROM in office. Exam by Ai Mcdonnell LM. Deferred repeat for now. Bleeding/Discharge: Bloody Show EFM Findings - External Monitor Findings Baseline Heart Rate: 140 External Monitor Findings: Accelerations Present, No Pattern of Variable or Late Decelerations, Variability Moderate Contractions: None Assessment/Plan - Assessment IUP @ 38+1 weeks gestation, SROM. No evidence metabolic acidemia. - Obstetrical Risk Factors Obstetrical Risk Factors: Obesity, Tobacco Use - Plan Plan: Admit - Anticipate Vaginal Delivery Plan Comment: Admit to L&D. PARQ discussion pitocin for labor augmentation as it has been approx 11 hours since ROM. Patient agrees. Planning to go without labor epidural , will likely want to try nitrous. Anticipate SVB. - Date/Time of Admission Date of Admission: 10/25/17 Time of Admission: 16:18
[2017-10-25 17:55] LABS: ABS Basophils 0 10^3/ul (0-0.2); ABS Eosinophils 0.2 10^3/ul (0-0.6); ABS Lymphocytes 2.7 10^3/ul (1.0-4.8); ABS Monocytes 0.6 10^3/ul (0-0.8); ABS Neutrophils 5.4 10^3/ul (1.5-7.7); ABS Nucleated RBC 0 10^3/ul; Eosinophil % 2.6 % (0-6); Hematocrit 33 % (35-47); Hemoglobin 11.5 g/dl (12.0-16.0); Lymphocyte % 30.1 % (25-47); Mean Corpuscular HGB Conc 35 g/dl (31-36); Mean Corpuscular Hemoglobin 31 pg (27-31); Mean Corpuscular Volume 90 fL (80-97); Mean Platelet Volume 8.7 um3 (7.4-10.4); Nucleated Red Blood Cells % 0; Platelet Count 209 10^3/ul (150-450); Red Blood Count 3.66 10^6/ul (4.00-5.40); Red Cell Distribution Width 13 % (10.5-15)
[2017-10-25] MEDS ORDERED: Mouth Piece, Nicotine* 1 EACH CARTRIDGE INH ONE (22:25)
[2017-10-25] MEDS: Nicotine Inhaler* 10 MG AMP INH PRN (23:16)
[2017-10-25] MEDS ORDERED: Nalbuphine* 10 MG/ML 1 ML VIAL IV PRN (23:37)
[2017-10-25] MEDS ORDERED: Promethazine INJ(RESTRICTED)* 25 MG/ML 1 ML VIAL IV PRN (23:37)
--- NOTE | 2017-10-26 01:14 | PN ---
Progress Note - Progress Note Date of Service: 10/25/17 - Note time 2315 SOAP: Subjective: [Patient would like exam, concerned because she is "not feeling anything" yet. We discussed pitocin protocol and giving it time to work. Advised against cervical exam if it is going to make her more upset because of lack of progress. She states that she really does want to know. Patient upset because her mother has to work in am and can't stay to be with her for of baby. Tearful while discussing.] Objective: [VSS, afebrile FHT 125, +accels, no decels, mod italia VE 3cm/80/-1 ] Assessment: [ROM, not in labor. Anxiety] Plan: [Plan to try tub with pitocin and monitoring off, then will restart pitocin and give Nubain/phenergan for therapeutic rest. Addendum 10/26/17 0035: Patient declined therapeutic rest to RN after getting out of the tub, stating "I don't want anything that will slow down contractions". She states that she just wants Benedryl to try to help her sleep. She is upset because she has been here sine this afternoon and "nothing is happening". Worried that she will "never have this baby". In discussion of these concerns, she states that if she took narcotic and woke up to no contractions, she would "sign herself out of here" and just go home to "deal with it herself". Encouraged patient to try medication, that rest may be the calloway to getting labor started. Discussed risks to baby of infection d/t ROM and that the safest thing is to stay here and continue attempts to get labor started. Strongly discouraged leaving AMA. Patient agrees to nubain/phenergan. ]
[2017-10-26] MEDS: Nicotine Inhaler* 10 MG AMP INH PRN (04:35)
[2017-10-26] MEDS ORDERED: Acetaminophen TAB* 325 MG PO ONE (05:58)
[2017-10-26] MEDS ORDERED: Acetaminophen TAB* 325 MG ONE (06:00)
--- NOTE | 2017-10-26 06:06 | PN ---
Progress Note - Progress Note Date of Service: 10/26/17 SOAP: Subjective: [Patient has been upset, crying. Arguments with family members. Mom is here but will have to leave for work and she is worried she won't deliver baby by then. States she feels "claustrophobic" because of difficulty breathing through her nose due to stuffiness. She reports headache.] Objective: [Pit @ 12 VSS FHT 120, Cat 1 VE 5cm/90/-1 ] Assessment: [Active labor, difficulty coping.] Plan: [Would like to try nitrous at this time after discussion. Patient strongly declines epidural, concerned about back pain she experienced after last . Will give Tylenol for CURTIS.]
--- NOTE | 2017-10-26 07:53 | PN ---
Progress Note - Progress Note Date of Service: 10/26/17 - Note time 0704 SOAP: Subjective: [Patient reports urge to push, increased pressure. Wants another exam because she thinks she may have changed since RN exam. Objective: [VE by RN @ 0645: 7cm/90/-1 Current exam: unchanged Pit @ 12 FHT 125, cat 1 ] Assessment: [Coping ok when she has support by family/partner.] Plan: [Continue nitrous, patient declines epidural. Encourage knee/chest and other positions to decrease feeling of pressure.]
[2017-10-26] MEDS ORDERED: OBEPIDURAL* 250 ML EPIDURAL ONE (08:43)
[2017-10-26] MEDS ORDERED: EPHEDrine (Pressors)* 50 MG/ML VIAL IV PUSH PRN ×2 (09:54)
[2017-10-26] MEDS ORDERED: Sodium Citrate/Citric Acid* 15 ML UDC PO PRN (09:54)
[2017-10-26] MEDS ORDERED: Phenylephrine IV* 40 MCG/ML 10 ML SYRINGE IV PUSH PRN (09:54)
[2017-10-26] MEDS ORDERED: Famotidine TAB* 20 MG PO PRN (09:54)
[2017-10-26] MEDS ORDERED: OBEPIDURAL* 250 ML EPIDURAL SCH (10:00)
[2017-10-26] MEDS: Phenylephrine IV* 40 MCG/ML 10 ML SYRINGE IV PUSH PRN ×3 (10:20→10:28)
[2017-10-26] MEDS ORDERED: Ibuprofen TAB* 600 MG ONE (22:13)
[2017-10-26] MEDS ORDERED: Dibucaine 1% 28.35 GM TUBE PR PRN (23:26)
[2017-10-26] MEDS ORDERED: Witch Hazel PAD* JAR TOPICAL PRN (23:26)
[2017-10-26] MEDS ORDERED: Acetaminophen TAB* 325 MG PO PRN (23:26)
[2017-10-26] MEDS ORDERED: Glycerin ADULT SUPP PR PRN (23:26)
--- NOTE | 2017-10-27 02:07 | PROCNOTE ---
[facility] OB: Delivery Note - Delivery A Date of : 10/26/17 Time of : 17:04 [place] Sex: Male Weight at : 3.178 kg Score 1 Minute: 9 Score 5 Minutes: 9 Gestational Age in Weeks and Days at Delivery: 39 Weeks and 0 Days Delivery Method: Spontaneous Vaginal Labor: Spontaneous - augmented with Pitocin after prelabor rupture of membranes Did Patient attempt ?: N/A, No Previous Amniotic Fluid: Clear Estimated Blood Loss: 300 Anesthesia/Analgesia: CEI for Labor Delivered By: Traci Navarrete - Nursery Level of Nursery: Regular/Bedside - Perineum Perineal Injury: None/Intact Perineal Repair: None - Events Delivery Events of Note: Pitocin During Labor, Precipitous Delivery - Additional Delivery Notes Additional Delivery Notes: Pt admitted to L&D after prelabor spontaneous rupture of membranes, and was started on Pitocin after labor did not initiate spontaneously. Pt initially used nitrous oxide for pain relief, then requested epidural. After several unsuccessful attempts at epidural placement, a second anesthesiologist placed the epidural, which provided excellent relief. Pt then progressed to full dilation. Immediately after beginning to push pt delivered infant, this job specification writer was just outside room, and infant was caught by RN. Mal infant w/ Apgars of 9/9 was transferred to maternal abdomen. Placenta delivered spontaneously, Ray side. Fundas firm with fundal massage. Perineum was intact. Pt and stable , anticipate normal course.
[2017-10-27] MEDS: Ibuprofen TAB* 600 MG PO PRN ×4 (04:25→23:18)
[2017-10-27 06:42] LABS: ABS Basophils 0 10^3/ul (0-0.2); ABS Eosinophils 0.2 10^3/ul (0-0.6); ABS Monocytes 0.6 10^3/ul (0-0.8); ABS Neutrophils 5.1 10^3/ul (1.5-7.7); ABS Nucleated RBC 0 10^3/ul; Eosinophil % 2.5 % (0-6); Hematocrit 29 % (35-47); Hemoglobin 10.3 g/dl (12.0-16.0); Lymphocyte % 33.4 % (25-47); Mean Corpuscular HGB Conc 35 g/dl (31-36); Mean Corpuscular Hemoglobin 32 pg (27-31); Mean Corpuscular Volume 91 fL (80-97); Mean Platelet Volume 8.8 um3 (7.4-10.4); Nucleated Red Blood Cells % 0; Platelet Count 159 10^3/ul (150-450); Red Blood Count 3.23 10^6/ul (4.00-5.40); Red Cell Distribution Width 14 % (10.5-15); White Blood Count 9.1 10^3/ul (3.5-10.8)
[2017-10-27] MEDS: Ferrous Gluconate TAB* 324 MG TAB PO SCH ×2 (08:25→20:35)
[2017-10-27] MEDS: Docusate CAP* 100 MG PO SCH ×3 (08:25→20:35)
[2017-10-28 07:57] VITALS: BP 118/58
[2017-10-28] MEDS: Ibuprofen TAB* 600 MG PO PRN ×2 (08:17→14:13)
[2017-10-28] MEDS: Ferrous Gluconate TAB* 324 MG TAB PO SCH (09:16)
[2017-10-28] MEDS: Docusate CAP* 100 MG PO SCH ×2 (09:16→13:12)
[2017-10-28] MEDS ORDERED: Tetan/Diph/Pertus SYR(Tdap)* 0.5 ML SYR(BOOSTRIX) use SYR IM ONE (11:22)
== END 2017-10-28 17:54 | disposition home or self-care (01) | DRG 560 ==
LOC: MCHOBOUT 16:14 → MCHOB 16:18
PROVIDERS: ADMIT Midwife; ATTEND Midwife
PROC: 10E0XZZ Delivery of Products of Conception, External Approach (ICD-10-PCS; principal; 2017-10-27)
PROC: 10907ZC Drainage of Amniotic Fluid, Therapeutic from Products of Conception, Via Natural or Artificial Opening (ICD-10-PCS; 2017-10-27)
PROC: 4A1HXCZ Monitoring of Products of Conception, Cardiac Rate, External Approach (ICD-10-PCS; 2017-10-27)
DX: O99.344 Other mental disorders complicating childbirth (principal); O98.52 Other viral diseases complicating childbirth; F41.9 Anxiety disorder, unspecified; F32.9 Major depressive disorder, single episode, unspecified; B00.9 Herpesviral infection, unspecified; O99.214 Obesity complicating childbirth; O99.334 Smoking (tobacco) complicating childbirth; O90.81 Anemia of the puerperium; O62.3 Precipitate labor; Z88.2 Allergy status to sulfonamides; Z91.013 Allergy to seafood; Z90.49 Acquired absence of other specified parts of digestive tract; Z83.3 Family history of diabetes mellitus; Z82.5 Family history of asthma and other chronic lower respiratory diseases; Z37.0 Single live birth; Z68.36 Body mass index [BMI] 36.0-36.9, adult; Z3A.39 39 weeks gestation of pregnancy
CPT/HCPCS: 36415; 85025; 86850; 86900; 86901; 90715; A9270-GY; J2300; J2550